=== PATIENT | male | born 1990 | race Caucasian/White ===

== ENCOUNTER 2020-04-20 13:11 | Inpatient (IN) | payer SELFPAY ==
[2020-04-20 13:14] VITALS: BP 127/75; PULSE 63; RESP 16; TEMP 36.5; O2SAT 95; BMI 22.4
--- NOTE | 2020-04-20 13:22 | ECG_ITS ---
[facility] Test Date: 2020-04-20 Pat Name: Jim Caraballo Department: Room: Gender: Male Manager Dairy: : 1990 Requested By: Funmilayo Sanders Order Number: [id number] Kitchen MD: Cat Encarnacion M.D. Measurements Intervals [place] Rate: 54 P: 54 AL: 121 QRS: 101 QRSD: 94 T: 60 QT: 404 QTc: 386 Interpretive Statements SINUS BRADYCARDIA WITH SINUS ARRHYTHMIA RIGHT AXIS DEVIATION [QRS AXIS > 100] ST ELEVATION, PROBABLY EARLY REPOLARIZATION [ST ELEVATION WITH NORMALLY INFLECTED T WAVE] No previous ECG available for comparison Electronically Signed On 04-20-2020 19:41:03 CDT by Cat Encarnacion M.D. [id number]
[2020-04-20 13:25] VITALS: BP 129/79; PULSE 74; RESP 18; TEMP 36.5; O2SAT 95; BMI 24.1
--- NOTE | 2020-04-20 13:25 | W.ED.GENADLT ---
HPI - General Adult General: Chief complaint: Psychiatric Symptoms Stated complaint: SI Time Seen by Provider: 04/20/20 13:11 Source: patient Mode of arrival: EMS Limitations: no limitations History of Present Illness: HPI narrative: Jim is a nice 29-year-old male who comes in stating he is suicidal. He does not currently have a plan. He states he does have history of previous suicide attempts. When asked why he feels this way he states he has had numerous new stressors in his life including problems with his girlfriend. He states he wants to come into the hospital and get help. He denies any other complaints or concerns at this time. EMS brought the patient in and have placed an affidavit on the chart. Associated symptoms: Deny chest pain, dyspnea, headache(s), nausea, rash, palpitations, syncope or vomiting Review of Systems Const: Denies: fever(s) Eyes: Denies: change in vision or blurry vision ENMT: Denies: throat pain, hoarseness or swelling of lips/tongue Card: Denies: chest pain, palpitations, syncope, pre-syncope or dyspnea on exertion Resp: Denies: dyspnea, productive cough, non-productive cough, wheezing, change in phlegm color or hemoptysis GI: Denies: abdominal pain, nausea, vomiting or diarrhea : Denies: flank pain, dysuria, urinary frequency or urinary urgency Musc: Denies: neck pain, back pain or extremity pain Skin/Breast: Denies: rash or pruritus Neuro: Denies: headache(s), numbness in extremities, weakness in extremities or dizziness Alok/Lymph: Denies: easy bruising, easy bleeding, petechiae or purpura All/Imm: Denies: urticaria or throat swelling Physical Exam Const: COMMON NORMALS: no acute distress, patient oriented x3, no limitations and alert GENERAL APPEARANCE: cooperative HENMT: COMMON NORMALS: normocephalic, atraumatic, external ears normal, EAC's normal and Normal external nose present HEAD & SCALP: normal to inspection, normocephalic and atraumatic FACE & SINUS: normal facial exam and face symmetric NOSE: Normal external nose present and Normal nares present EXTERNAL EAR: Yes external ears normal EXTERNAL AUDITORY CANAL: EAC's normal MOUTH: Normal oral and palatal mucosa present, lip normal and tongue normal Eye: COMMON NORMALS: Equal, round and reactive pupils present and conjunctivae normal GENERAL EYE: appearance normal, both eyes and all related structures ALIGNMENT: Yes alignment normal PERIORBITAL: periorbital findings normal EYELID: eyelids normal CONJUNCTIVA: Yes conjunctivae normal SCLERA: sclerae normal PUPIL: Yes Equal, round and reactive pupils present Neck/C-Spine: COMMON NORMALS: full ROM, no lymphadenopathy, supple, no meningeal signs and no JVD GENERAL: Yes normal visual inspection and Yes trachea midline Chest: COMMONS NORMALS: normal inspection of the chest and normal palpation of entire chest wall Resp: COMMON NORMALS: normal respiratory effort, No retractions, No use of accessory muscles and clear to auscultation bilaterally EFFORT & INSPECTION: Yes able to speak in complete sentences and Yes symmetric chest movement AUSCULTATION: clear to auscultation bilaterally, no crackles, no rales, no rhonchi and no wheezes Cardio: COMMON NORMALS: no JVD, regular rate, regular rhythm, S1 normal heart sound present and S2 normal heart sound present RATE: regular rate RHYTHM: regular rhythm HEART SOUNDS: S1 normal heart sound present, S2 normal heart sound present, no click, no gallops, no murmurs and no rubs GI: COMMON NORMALS: Soft to palpation and No hepatosplenomegaly present PALPATION: Yes Soft to palpation, No Tenderness to palpation present (GI), No Guarding due to palpation present (GI), No Rigid due to palpation, Yes No hepatosplenomegaly present, No Hernia present, No Palpable mass present and No Pulsatile mass present : COMMON NORMALS: Yes no CVA tenderness BLADDER/KIDNEY EXAM: Yes no CVA tenderness Back/Pelvis: COMMON NORMALS: no CVA tenderness, thoracic and lumbar spine normal to inspection, no thoracic nor lumbar tenderness and thoraco-lumbar ROM normal Extremity: COMMON NORMALS: normal to inspection, full ROM, capillary refill normal, no joint enlargement, no clubbing, cyanosis or edema and no calf tenderness Neuro: COMMON NORMALS: patient oriented x3, CN's II-XII intact bilaterally, moves all extremities, no focal motor deficits and no sensory deficits noted SENSORIUM/ORIENTATION: Yes alert MENINGEAL SIGNS: Yes no meningeal signs SPEECH: speech normal Psych: COMMON NORMALS: mental status grossly normal, Normal thought process present, cooperative, normal affect, speech normal and activity/motor behavior normal SPEECH: Yes normal speech THOUGHT PROCESS: Normal thought process present Skin: COMMON NORMALS: turgor normal, no jaundice, no petechiae and no mottling NARRATIVE SKIN EXAM: Superficial linear abrasions to left forearm GENERAL SKIN EXAM: turgor normal Course Vital Signs: Vital signs: Vital Signs Temperature 97.7 F 04/20/20 13:25 Pulse Rate 74 04/20/20 13:25 Respiratory Rate 18 04/20/20 13:25 Blood Pressure 129/79 04/20/20 13:25 Pulse Oximetry 95 04/20/20 13:25 MDM - General Adult MDM Narrative: Medical decision making narrative: The case was reviewed with Dr. Mcgrath, he agrees accept the patient to the Neuropsych Unit Discharge Plan Discharge Patient Disposition: Admitted As Inpatient Clinical Impression: Suicidal ideation Condition: Stable Prescriptions: No Action No Known Home Medications RF: 0 Coding Level of Care Code ED Geriatric Nurse Assistant for Nadya Garcia
[2020-04-20] MEDS: LORazepam 2 mg Tablet PO (13:46)
[2020-04-20 13:52] LABS: Basophils % 0.6 %; Eosinophils # 0.1 10^3/uL (0.0-0.8); Eosinophils % 1.2 %; Hematocrit 46.9 % (42.0-52.0); Hemoglobin 15.1 g/dL (11.7-16.6); Lymphocytes # 1.6 10^3/uL (0.8-4.8); Lymphocytes % 23.9 %; Mean Corpuscular HGB Conc 32.2 g/dL (30.0-36.0); Mean Corpuscular Hemoglobin 27.2 pg (28.0-34.0); Mean Corpuscular Volume 84.5 fL (80-94); Monocytes # 0.4 10^3/uL (0.2-0.9); Monocytes % 5.3 %; Neutrophils # 4.52 10^3/uL (1.8-7.7); Neutrophils % 68.7 %; Nucleated Red Blood Cells % 0 %; Platelet Count 300 10^3/cmm (130-400); Red Blood Count 5.55 10^6/uL (4.1-5.3); Red Cell Distribution Width 12.5 % (12.1-15.1); White Blood Count 6.6 10^3/uL (4.0-10.0)
[2020-04-20 14:05] VITALS: BP 115/66; PULSE 64; RESP 16; O2SAT 99
[2020-04-20 14:10] LABS: Amphetamines Screen Urine Positive (Negative); Barbiturates Screen Urine Negative (Negative); Benzodiazepines Screen Urine Negative (Negative); Cocaine Screen Urine Negative (Negative); Opiate Screen Urine Negative (Negative); PCP Screen Urine Negative (Negative); THC Screen Urine Negative (Negative)
[2020-04-20 14:15] LABS: Alanine Aminotransferase 48 U/L (0-41); Albumin Level 4.5 g/dL (3.5-5.2); Alkaline Phosphatase 92 IU/L (40-130); Anion Gap 13.8 (5-19); Aspartate Amino Transferase 20 U/L (0-40); Blood Urea Nitrogen 13 mg/dL (6-20); Calcium 9.6 mg/dL (8.5-10.5); Carbon Dioxide 24 mmol/L (22-29); Chloride 105 mmol/L (98-107); Globulin 3.1 g/dL (1.3-4.6); Glomerular Filtration Rate 79.7 mL/min (90-130); Glucose 106 mg/dL (65-115); Osmolality Calculated 287 mOsm/kg (285-295); Potassium 4.8 mmol/L (3.5-5.1); Sodium 138 mmol/L (136-145); Thyroid Stimulating Hormone 0.96 uIU/mL (0.27-4.20); Total Bilirubin 0.3 mg/dL (0.15-1.2); Total Protein 7.6 g/dL (6.6-8.7)
[2020-04-20 14:16] LABS: Acetaminophen < 5.0 ug/mL (10-30); Alcohol Level < 10 mg/dL (0-10); Salicylate < 0.3 mg/dL (3-10)
[2020-04-20 14:47] LABS: Lithium 0.1 mmol/L (0.6-1.2); Phenytoin Dilantin 0.8 ug/mL (10-20); Valproic Acid Level 2.8 ug/mL (50-100)
[2020-04-20 15:11] VITALS: BP 132/56; PULSE 64; RESP 16; TEMP 36.6; O2SAT 99
[2020-04-20 15:22] VITALS: BP 111/72; PULSE 87; RESP 18; TEMP 36.6; O2SAT 98
[2020-04-20 22:00] VITALS: BP 119/70; PULSE 86; RESP 22; TEMP 37.1; O2SAT 100
[2020-04-21 06:00] VITALS: BP 104/70; PULSE 86; RESP 20; TEMP 36.4; O2SAT 98
[2020-04-21] MEDS: fluoxetine 20 mg Capsule PO (11:19)
--- NOTE | 2020-04-21 11:58 | P.HP_ITS ---
Providers/Chief Complaint Admitting Physician: Tre Mcgrath MD Chief Complaint: SI HPI NPU History of Present Illness Jim Caraballo is a 29 year old male who presented to the emergency room with the following report: Jim is a nice 29-year-old male who comes in stating he is suicidal. He does not currently have a plan. He states he does have history of previous suicide attempts. When asked why he feels this way he states he has had numerous new stressors in his life including problems with his girlfriend. He states he wants to come into the hospital and get help. He denies any other complaints or concerns at this time. EMS brought the patient in and have placed an affidavit on the chart. Associated symptoms: Deny chest pain, dyspnea, headache(s), nausea, rash, palpitations, syncope or vomiting. He presented to the neuropsychiatric unit for definitive treatment of those issues. He reports that he is just really stressed out right now. And everything is going the wrong way. He reports that anything that could go wrong has gone wrong. He reports that his old lady left him, his dad is sick, he is trying to maintain employment so that he can afford the things he needs. But no thing is appearing to work out for him he reports. He reports a previous hospitalization in [place]. He lives in [facility] in [place]. He reports that he has had previous suicide attempts but is been a couple of years. He denies cigarette use, reports alcohol use occasionally. Denies marijuana use or any other illicit drug use. He does admit that he had issues in the past and had been to a rehab when he was younger. He denies ever having a DUI. She has a that means and he did acknowledge recent relapse behavior but reports that he had been doing better, but he seemed to be unclear about the accuracy of that belief. He denies any history of psychiatric follow-up even after his hospitalization and we had a lengthy discussion about the importance of what 1 does after the inpatient stay is over. He endorses depressed mood, feelings of hopelessness and helplessness, feeling worthless and guilty. He endorsed suicidal thoughts and and openness to engage in treatment. We discussed the risks, benefits and alternatives of starting Prozac and he understood and agreed to proceed as is documented in this note. Psychiatric history: As above. Substance abuse history: As above. Family history: He endorses mental health issues on his mother side, addiction issues on his father's side, and a maternal second or third cousin who committed suicide. Developmental history: He denied any issues with his or delivery, reported that he learned to walk and talk to met his developmental milestones on time. But did report that when he went to school he did require special education classes. Psychosocial history: Reports his mother and father were together when he was born but his mother a couple years ago. He reports that he has a younger brother who is a product of that same union. He denies either of his parents having any other children. He reports that his childhood was pretty good and denies emotional, physical or sexual abuse. He reports the highest grade that he achieved was the ninth grade and denies getting his GED as of yet. He endorses being heterosexual on [place] 5 years. He denies ever being officially , he endorses having an 11-year-old daughter lives with her mother, he has never been in the but endorses being a Quaker. 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 He currently lives in a trailer with his father. Legal history: He reports that he has been in [facility] 6-7 times and his longest time in [facility] at 1 time was 1 year. Medical history: Denied. Meds NPU Home Medications Medication Instructions Recorded Confirmed Last Taken Type No Known Home Medications 04/20/20 04/20/20 Unknown History Allergies Allergy/AdvReac Type Severity Reaction Status Date / Time No Known Allergies Allergy Unverified 04/20/20 13:27 Mental Status Exam MSE Comments: This is a well-nourished well-developed white male with adequate dress, grooming and eye contact. No abnormal movements except for psychomotor retardation. Cooperative with exam in mild distress. Speech was normal rate and decreased volume. Mood described as depressed, affect congruent. Thought process organized. Thought content: Patient endorsed suicidal ideation but denied homicidal ideation, there were no delusions reported or noted, he denied any auditory or visual sedations. Attention and concentration were intact and memory appeared reliable but none were formally tested. He is alert and oriented x3. Insight and judgment appear fair and impulse control is impaired. Vitals/I&O/Wt Last Vital Signs Temp 98.2 F 04/21/20 20:56 Pulse 84 04/21/20 20:56 Resp 21 H 04/21/20 20:56 BP 112/74 04/21/20 20:56 Pulse Ox 97 04/21/20 20:56 Weight last 48 hrs Weight 65.771 kg Weight 61.235 kg Data NPU : 04/20/20 13:21 04/20/20 13:21 A&P Assessment and plan (1) Suicidal ideation: Status: Acute (2) Methamphetamine abuse: Status: Acute (3) Depressive disorder: Status: Acute Additional A&P Information This is a 29-year-old white male with a long history of addiction and depression who presents with possible relapse and endorsing openness for treatment and a willingness to initiate a medication trial. 1. Continue current medication. Except start Prozac 20 mg p.o. every morning. 2. Continue every 15 minute checks for safety. 3. Encourage individual, group and milieu therapy. 4. Encourage follow-up with a sober living treatment facility at the highest level of care to which he is willing to commit. Involuntary Hold Information 96 Hour Hold: 96 Hour Involuntary Admission: No Attestations NPU Medical Necessity Statement*: Inpatient hospitalization is medically necessary and the clinically appropriate intervention at this time. We will initiate, monitor and make changes to medications as indicated. He will be in the hospital for over 2 midnights. Likely length of stay 3 to 5 days. Coding Level of Care Code Acute Venereal Disease Control Head for Nadya Garcia Diagnoses Suicidal ideation R45.851 Methamphetamine abuse F15.10 Depressive disorder F32.9
[2020-04-21 14:00] VITALS: BP 98/62; PULSE 75; RESP 18; TEMP 36.6; O2SAT 98
[2020-04-21 20:56] VITALS: BP 112/74; PULSE 84; RESP 21; TEMP 36.8; O2SAT 97
[2020-04-22 06:00] VITALS: BP 106/70; PULSE 69; RESP 20; TEMP 36.9; O2SAT 97
[2020-04-22] MEDS: fluoxetine 20 mg Capsule PO (08:52)
--- NOTE | 2020-04-22 11:00 | PM.NPN ---
Subjective NPU Subjective: Interval history: Jim presents today reporting that he is tolerating the Prozac just fine and feels bit better. He reports that he is glad that he came to the unit to get things back on track. He reports that he has been talking to his dad since yesterday and he feels that has been a help him get things back together. He has some important meeting her court date that he wants to make sure he does not miss and we discussed benefits and alternatives of monitoring the medication and allowing him to get stability with a couple more days here with a likely discharge on Friday and he understood and agreed to proceed as documented in this note. Mental Status Exam MSE Comments: This is a well-nourished well-developed white male with adequate dress, grooming and eye contact. No abnormal movements except for improving psychomotor retardation. Cooperative with exam in no acute distress. Speech was normal rate and decreased volume. Mood described as feeling a bit better, affect congruent. Thought process organized. Thought content: Patient endorsed suicidal ideation was resolving but denied homicidal ideation, there were no delusions reported or noted, he denied any auditory or visual hallucinations. Attention and concentration were intact and memory appeared reliable but none were formally tested. He is alert and oriented x3. Insight and judgment appear fair and impulse control is impaired. Vitals/I&O/Wt Last Vital Signs Temp 98.4 F 04/22/20 06:00 Pulse 69 04/22/20 06:00 Resp 20 H 04/22/20 06:00 BP 106/70 04/22/20 06:00 Pulse Ox 97 04/22/20 06:00 Weight last 48 hrs Weight 65.771 kg Weight 61.235 kg Data NPU : 04/20/20 13:21 04/20/20 13:21 A&P Additional A&P Information (1) Suicidal ideation: (2) Methamphetamine abuse: (3) Depressive disorder This is a 29-year-old white male with a long history of addiction and depression who presents with possible relapse and endorsing openness for treatment and a willingness to initiate a medication trial. 1. Continue current medication. 2. Continue every 15 minute checks for safety. 3. Encourage individual, group and milieu therapy. 4. Encourage follow-up with a sober living treatment facility at the highest level of care to which he is willing to commit. Involuntary Hold Information 96 Hour Hold: 96 Hour Involuntary Admission: No Attestations NPU Medical Necessity Statement*: Inpatient hospitalization is medically necessary and the clinically appropriate intervention at this time. We will initiate, monitor and make changes to medications as indicated. Likely length of stay 2-4 days. Coding Level of Care Code Acute Fax Machine Repairer for Nadya Garcia
[2020-04-22 14:00] VITALS: BP 101/67; PULSE 99; RESP 18; TEMP 36.1; O2SAT 99
[2020-04-22 20:54] VITALS: BP 111/77; PULSE 89; RESP 19; TEMP 36.6; O2SAT 96
[2020-04-22] MEDS: hyDROXYzine 25 mg Capsule 50 MG PO (20:58)
[2020-04-22] MEDS: trazodone 50 mg Tablet PO (20:59)
--- NOTE | 2020-04-23 00:59 | PC.NURSE ---
PRN given/followup trazodone 50mg po given @2058. Follow up @99 : result is sleep visteril 50mg PO given for anxiety @2058 Follow up @99 no s/s of anxiety
[2020-04-23 06:00] VITALS: BP 106/72; PULSE 77; RESP 14; TEMP 36.4; O2SAT 97
[2020-04-23] MEDS: fluoxetine 20 mg Capsule PO (08:51)
--- NOTE | 2020-04-23 12:23 | P.PN_ITS ---
Subjective NPU Subjective: Interval history: Jim presents today reporting that he has been in conversation with his dad and his dad is going to help him after he is discharged. He reports that he is doing well medication without any issues with side effects. He reports that he is hopeful that he can be discharged tomorrow because he does have some issues that are pressing that he should take care of. Mental Status Exam MSE Comments: This is a well-nourished well-developed white male with adequate dress, grooming and eye contact. No abnormal movements except for improving psychomotor retardation. Cooperative with exam in no acute distress. Speech was normal rate and decreased volume. Mood described as better, affect congruent. Thought process organized. Thought content: Patient denied suicidal ideation or homicidal ideation, there were no delusions reported or noted, he denied any auditory or visual hallucinations. Attention and concentration were intact and memory appeared reliable but none were formally tested. He is alert and oriented x3. Insight and judgment appear fair and impulse control is limited but improving. Vitals/I&O/Wt Last Vital Signs Temp 97.6 F 04/23/20 06:00 Pulse 77 04/23/20 06:00 Resp 14 04/23/20 06:00 BP 106/72 04/23/20 06:00 Pulse Ox 97 04/23/20 06:00 Weight last 48 hrs Weight 63.14 kg Data NPU : 04/20/20 13:21 04/20/20 13:21 A&P Additional A&P Information Additional A&P Information (1) Suicidal ideation: (2) Methamphetamine abuse: (3) Depressive disorder This is a 29-year-old white male with a long history of addiction and depression who presents with possible relapse and endorsing openness for treatment and a willingness to initiate a medication trial. 1. Continue current medication. 2. Continue every 15 minute checks for safety. 3. Encourage individual, group and milieu therapy. 4. Encourage follow-up with a sober living treatment facility at the highest level of care to which he is willing to commit. Involuntary Hold Information 96 Hour Hold: 96 Hour Involuntary Admission: No Attestations NPU Medical Necessity Statement*: npatient hospitalization is medically necessary and the clinically appropriate intervention at this time. We will initiate, monitor and make changes to medications as indicated. Likely length of stay 1-3 days Coding Level of Care Code Acute Senior Software Quality Engineer for Nadya Garcia
[2020-04-23 14:00] VITALS: BP 115/73; PULSE 92; RESP 18; TEMP 36.8; O2SAT 98
[2020-04-23 21:02] VITALS: BP 116/62; PULSE 71; RESP 17; TEMP 36.6; O2SAT 97
[2020-04-23] MEDS: trazodone 50 mg Tablet PO (21:16)
[2020-04-23] MEDS: hyDROXYzine 25 mg Capsule 50 MG PO (21:16)
[2020-04-24 06:00] VITALS: BP 112/74; PULSE 77; RESP 16; TEMP 36.5; O2SAT 97
[2020-04-24] MEDS: fluoxetine 20 mg Capsule PO (07:43)
[2020-04-24 10:06] VITALS: BP 112/74; PULSE 77; RESP 16; TEMP 36.5; O2SAT 97
--- NOTE | 2020-04-24 10:33 | PM.NDC ---
Diagnoses at Discharge Discharge Diagnosis (1) Suicidal ideation: Status: Resolved (2) Methamphetamine abuse: Status: Acute (3) Depressive disorder: Status: Acute Reason for Visit Reason for Visit: SI Brief History: History of Present Illness Jim Caraballo is a 29 year old male who presented to the emergency room with the following report: Jim is a nice 29-year-old male who comes in stating he is suicidal. He does not currently have a plan. He states he does have history of previous suicide attempts. When asked why he feels this way he states he has had numerous new stressors in his life including problems with his girlfriend. He states he wants to come into the hospital and get help. He denies any other complaints or concerns at this time. EMS brought the patient in and have placed an affidavit on the chart. Associated symptoms: Deny chest pain, dyspnea, headache(s), nausea, rash, palpitations, syncope or vomiting. He presented to the neuropsychiatric unit for definitive treatment of those issues. He reports that he is just really stressed out right now. And everything is going the wrong way. He reports that anything that could go wrong has gone wrong. He reports that his old lady left him, his dad is sick, he is trying to maintain employment so that he can afford the things he needs. But nothing is appearing to work out for him he reports. He reports a previous hospitalization in [place]. He lives in [facility] in [place]. He reports that he has had previous suicide attempts but is been a couple of years. He denies cigarette use, reports alcohol use occasionally. Denies marijuana use or any other illicit drug use. He does admit that he had issues in the past and had been to a rehab when he was younger. He denies ever having a DUI. She has a that means and he did acknowledge recent relapse behavior but reports that he had been doing better, but he seemed to be unclear about the accuracy of that belief. He denies any history of psychiatric follow-up even after his hospitalization and we had a lengthy discussion about the importance of what 1 does after the inpatient stay is over. He endorses depressed mood, feelings of hopelessness and helplessness, feeling worthless and guilty. He endorsed suicidal thoughts and and openness to engage in treatment. We discussed the risks, benefits and alternatives of starting Prozac and he understood and agreed to proceed as is documented in this note. Psychiatric history: As above. Substance abuse history: As above. Family history: He endorses mental health issues on his mother side, addiction issues on his father's side, and a maternal second or third cousin who committed suicide. Developmental history: He denied any issues with his or delivery, reported that he learned to walk and talk to met his developmental milestones on time. But did report that when he went to school he did require special education classes. Psychosocial history: Reports his mother and father were together when he was born but his mother a couple years ago. He reports that he has a younger brother who is a product of that same union. He denies either of his parents having any other children. He reports that his childhood was pretty good and denies emotional, physical or sexual abuse. He reports the highest grade that he achieved was the ninth grade and denies getting his GED as of yet. He endorses being heterosexual on [place] 5 years. He denies ever being officially , he endorses having an 11-year-old daughter lives with her mother, he has never been in the but endorses being a [employer]. 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 He currently lives in a trailer with his father. Legal history: He reports that he has been in assisted 6-7 times and his longest time in assisted at 1 time was 1 year. Medical history: Denied. Hospital Course Hospital Course The patient presented to the emergency room stating he was suicidal but without a plan. He has a history of previous suicide attempts. He endorsed numerous significant stressors in his life, including problems with his girlfriend. He came to the hospital to get help before things got really bad. He had an affidavit in his chart from EMS, and he was admitted to the neuropsychiatric unit for definitive treatment of those issues. On the unit, he was started on Prozac and had a significant positive response. His father is a significant support, and he was able to to get his father to allow him to go with him when he leaves the hospital. During the hospitalization, the patient had routine laboratory studies which were within normal limits, except for a few outliers. Additionally, the patient had a general medical evaluation which was within normal limits and revealed no new acute processes. Discharge Summary At the time of discharge the patient denied all lethality, was absent psychosis, and mood and anxiety were well managed. The patient endorsed a plan to avoid all drugs of abuse and to follow-up with outpatient services, as recommended. The patient was evaluated and deemed to be absent credible lethality, and had achieved the maximum benefit from an inpatient hospitalization, and so he was discharged. Involuntary Hold Information 96 Hour Hold: 96 Hour Involuntary Admission: No Mental Status Exam MSE Comments: This is a well-nourished, well-developed, white male, with adequate dress, grooming, and eye contact. No abnormal movements. Cooperative with exam in no acute distress. Speech was normal rate and volume. Mood described as good; affect congruent. Thought process, organized. Thought content: patient denied any suicidal or homicidal ideation, there were no delusions reported or noted, patient denied any auditory or visual hallucinations. Attention, concentration, and memory appeared intact but none were formally tested. He is alert and oriented times three. Insight and judgment are fair and improving. Impulse control is limited but improving. Discharge Data Vitals: Last Vital Signs Temp 97.7 F 04/24/20 10:06 Pulse 77 04/24/20 10:06 Resp 16 04/24/20 10:06 BP 112/74 04/24/20 10:06 Pulse Ox 97 04/24/20 10:06 Discharge Plan Discharge Patient Disposition: Home Condition: Stable Prescriptions: New fluoxetine 20 mg Capsule 20 mg PO DAILY 30 Days Qty: 30 RF: 1 Discharge Orders: Discharge Order (Routine); Ordered 04/24/20 Ordered By: Tre Mcgrath Referrals: [facility] [Outside] - 1-3 days (call for initial intake. you might be able to do services over the phone. Once the initial assessment is done most services can be done at the [place], [place] location.) [facility] [Outside] - 1-3 days (resource for substance abuse treatment in [place], [place] area. for other resources contact Gwen in NPU [phone].) Discharge Diet: Regular Discharge Activity: Resume usual activity Patient Instructions: Fluoxetine (By mouth) Activity Restrictions/Additional Instructions: do contact Gwen in npu about note for p.o. so she knows where to fax your note. [phone] extension [phone] Discharge Date/Time: 04/24/20 12:15 Discharge Attestations NPU Time Spent in Discharge Care*: less than 30 min Specific Discharge Activities: Specific discharge activities: educating patient, discussing with case monitor/social workers/dc planners, documenting/other paperwork and evaluating patient/reviewing data Coding Level of Care Code Acute [employer] Processor for [facility] Fwd Diagnoses Suicidal ideation R45.851 Methamphetamine abuse F15.10 Depressive disorder F32.9
== END 2020-04-24 12:15 | disposition home or self-care (01) | DRG 881 ==
LOC: ER 14:21 → NP 14:23
PROVIDERS: Emergency Medicine; Admitting Provider Psychiatry & Neurology Psychiatry; Visit Provider Psychiatry & Neurology Psychiatry
DX: F32.9 Major depressive disorder, single episode, unspecified (principal); R45.851 Suicidal ideations; F15.10 Other stimulant abuse, uncomplicated
CPT/HCPCS: 12345; 36415; 80053; 80156; 80164; 80178; 80185; 80306; 80307; 84443; 85025; 93005; 99284